=== PATIENT | female | born 1950 | race Caucasian/White ===

== ENCOUNTER 2025-02-01 15:58 | Inpatient (IN) ==
[2025-02-01] MEDS: LACTATED RINGERS 1,000 ML IV ONE ×2 (16:37→17:16)
[2025-02-01] MEDS: DIPH,PERTUSS(ACELL),TET VAC/PF 0.5 ML SYRINGE IM ONE (16:41)
[2025-02-01 17:16] LABS: Anion Gap 15.0 (8.0-16.0); Blood Urea Nitrogen 27 mg/dL (8-23); Calcium 9.3 mg/dL (8.6-10.4); Carbon Dioxide 21 mmol/L (22-30); Chloride 99 mmol/L (96-108); Glucose 115 mg/dL (70-105); Potassium 4.2 mmol/L (3.3-5.1); Sodium 135 mmol/L (133-145)
[2025-02-01 17:34] LABS: Basophils # (Auto) 0.05 K/mcL (0.00-0.30); Basophils % (Auto) 0.4 % (0.0-2.0); Eosinophils # (Auto) 0.06 K/mcL (0.00-0.70); Eosinophils % (Auto) 0.4 % (0.0-7.0); Hematocrit 34.7 % (34.1-44.9); Hemoglobin 11.0 g/dL (11.2-15.7); Lymphocytes # (Auto) 4.76 K/mcL (1.50-4.80); Lymphocytes % (Auto) 35.1 % (15.5-49.0); Mean Corpuscular HGB Conc 31.7 g/dL (31.0-36.0); Monocytes # (Auto) 0.99 K/mcL (0.10-0.90); Monocytes % (Auto) 7.3 % (1.0-12.0); Neutrophils % (Auto) 56.7 % (38.0-78.0); Platelet Count 156 K/mcL (140-440); RBC 3.39 M/mcL (3.59-5.38); WBC 13.6 K/mcL (4.5-11.0)
[2025-02-01 18:06] LABS: Bacteria,Urine Many /hpf (0); Bilirubin,Urine Negative (Negative); Color,Urine Yellow; Glucose,Urine (UA) Negative (Negative); Ketones,Urine Negative (Negative); Leukocyte Esterase,Urine Moderate /uL (Negative); Mucus,Urine Mod /hpf; PH,Urine 6.5 (5.0-9.0); Protein,Urine Negative (Negative); Specific Gravity,Urine 1.010 (1.000-1.035); Urobilinogen,Urine Normal
[2025-02-01 18:58] LABS: Barbiturate Screen,Urine None detected; Benzodiazepines Screen,Urine None detected; Fentanyl, Urine Screen None Detected; Opiate Screen,Urine None detected; Oxycodone, Urine Screen None detected; Phencyclidine Screen,Urine None detected
[2025-02-01] MEDS: ONDANSETRON 4 MG/2 ML VIAL ONE (19:19)
[2025-02-01] MEDS: NALOXONE HCL 0.4 MG/ML VIAL ONE ×2 (19:19→21:46)
[2025-02-01] MEDS: cefTRIAXone 1 GM VIAL IV ONE (19:19)
[2025-02-01] MEDS: IPRATROPIUM/ALBUTEROL 3 ML AMPUL.NEB NEB ONE (20:31)
[2025-02-01] MEDS: NALOXONE HCL 0.4 MG/ML VIAL IV PRN (21:30)
[2025-02-01] MEDS: CIPROFLOXACIN 400 MG/200 ML BAG IV ONE (21:55)
[2025-02-01] MEDS ORDERED: CIPROFLOXACIN 400 MG/200 ML BAG IV SCH (22:00)
[2025-02-01] MEDS ORDERED: SENNOSIDES 1 TABLET PO PRN (23:46)
[2025-02-01] MEDS ORDERED: POLYETHYLENE GLYCOL 3350 17 GM PACKET PO PRN (23:46)
[2025-02-01] MEDS ORDERED: DEXTROSE 50% 50 ML VIAL IV PRN (23:46)
[2025-02-01] MEDS ORDERED: DEXTROSE 31 GM ORAL.SUSP PO PRN (23:46)
[2025-02-02] MEDS: LACTATED RINGERS 1,000 ML IV SCH (00:18)
[2025-02-02] MEDS: 0.9 % SODIUM CHLORIDE 10 ML SYRINGE IV SCH (05:54)
[2025-02-02 06:23] LABS: Basophils # (Auto) 0.02 K/mcL (0.00-0.30); Basophils % (Auto) 0.2 % (0.0-2.0); Eosinophils # (Auto) 0 K/mcL (0.00-0.70); Eosinophils % (Auto) 0 % (0.0-7.0); Hematocrit 32.3 % (34.1-44.9); Hemoglobin 10.7 g/dL (11.2-15.7); Lymphocytes # (Auto) 2.87 K/mcL (1.50-4.80); Lymphocytes % (Auto) 32.5 % (15.5-49.0); Mean Corpuscular HGB Conc 33.1 g/dL (31.0-36.0); Monocytes # (Auto) 0.74 K/mcL (0.10-0.90); Monocytes % (Auto) 8.4 % (1.0-12.0); Neutrophils % (Auto) 58.8 % (38.0-78.0); Platelet Count 141 K/mcL (140-440); RBC 3.26 M/mcL (3.59-5.38); WBC 8.8 K/mcL (4.5-11.0)
[2025-02-02 06:54] LABS: ALT/SGPT 13 U/L (<40); AST/SGOT 24 U/L (<32); Albumin 3.2 gm/dL (3.2-5.2); Albumin/Globulin Ratio 1.5 (1.0-2.3); Alkaline Phosphatase 39 U/L (39-117); Anion Gap 12.0 (8.0-16.0); Bilirubin,Direct < 0.2 mg/dL (0-0.3); Bilirubin,Total 0.3 mg/dL (0.1-1.0); Blood Urea Nitrogen 20 mg/dL (8-23); Calcium 8.8 mg/dL (8.6-10.4); Carbon Dioxide 24 mmol/L (22-30); Chloride 102 mmol/L (96-108); Globulin 2.2 gm/dL (2.2-3.7); Glucose 73 mg/dL (70-105); Phosphorous 3.1 mg/dL (2.5-4.5); Potassium 3.7 mmol/L (3.3-5.1); Sodium 138 mmol/L (133-145); Triglycerides 96 mg/dL (<150); Uric Acid 8.2 mg/dL (2.5-8.0)
[2025-02-02] MEDS: INSULIN LISPRO 1 UNIT/0.01 ML UNIT SQ SCH (07:42)
[2025-02-02] MEDS: HEPARIN 5,000 UNIT/ML VIAL SQ SCH (09:16)
[2025-02-02] MEDS: CIPROFLOXACIN 400 MG/200 ML BAG IV SCH (09:17)
[2025-02-02] MEDS: ACETAMINOPHEN 325 MG TABLET PO PRN (09:17)
[2025-02-02] MEDS: ONDANSETRON 4 MG/2 ML VIAL IV PRN (11:50)
[2025-02-02] MEDS: METHADONE 5 MG TABLET PO PRN (11:50)
[2025-02-02] MEDS: OMEPRAZOLE 20 MG CAPSULE PO SCH (16:22)
[2025-02-02] MEDS: NICOTINE 21 MG PATCH TOPICAL SCH (16:22)
[2025-02-02] MEDS: BACLOFEN 10 MG TABLET PO SCH (21:17)
[2025-02-02] MEDS: ATORVASTATIN 20 MG TABLET PO SCH (21:17)
[2025-02-03 06:46] LABS: Basophils # (Auto) 0.03 K/mcL (0.00-0.30); Basophils % (Auto) 0.4 % (0.0-2.0); Eosinophils # (Auto) 0.05 K/mcL (0.00-0.70); Eosinophils % (Auto) 0.7 % (0.0-7.0); Hematocrit 34.1 % (34.1-44.9); Hemoglobin 11.0 g/dL (11.2-15.7); Lymphocytes # (Auto) 4.10 K/mcL (1.50-4.80); Lymphocytes % (Auto) 53.5 % (15.5-49.0); Mean Corpuscular HGB Conc 32.3 g/dL (31.0-36.0); Monocytes # (Auto) 0.64 K/mcL (0.10-0.90); Monocytes % (Auto) 8.3 % (1.0-12.0); Neutrophils % (Auto) 37.0 % (38.0-78.0); Platelet Count 130 K/mcL (140-440); RBC 3.36 M/mcL (3.59-5.38); WBC 7.7 K/mcL (4.5-11.0)
[2025-02-03] MEDS: LEVOTHYROXINE SODIUM 112 MCG TABLET PO SCH (07:04)
[2025-02-03] MEDS: LEVOTHYROXINE 25 MCG TABLET PO SCH (07:04)
[2025-02-03] MEDS: LIDOCAINE 4% TOP PATCH TOPICAL PRN (07:44)
[2025-02-03] MEDS: ASPIRIN 81 MG TAB.CHEW PO SCH (09:42)
[2025-02-03 12:51] LABS: ALT/SGPT 13 U/L (<40); AST/SGOT 22 U/L (<32); Albumin 3.2 gm/dL (3.2-5.2); Albumin/Globulin Ratio 1.4 (1.0-2.3); Alkaline Phosphatase 48 U/L (39-117); Anion Gap 9.0 (8.0-16.0); Bilirubin,Direct < 0.2 mg/dL (0-0.3); Bilirubin,Total < 0.2 mg/dL (0.1-1.0); Blood Urea Nitrogen 17 mg/dL (8-23); Calcium 8.7 mg/dL (8.6-10.4); Carbon Dioxide 27 mmol/L (22-30); Chloride 102 mmol/L (96-108); Globulin 2.3 gm/dL (2.2-3.7); Glucose 113 mg/dL (70-105); Phosphorous 3.2 mg/dL (2.5-4.5); Potassium 4.2 mmol/L (3.3-5.1); Sodium 138 mmol/L (133-145); Triglycerides 141 mg/dL (<150); Uric Acid 7.5 mg/dL (2.5-8.0)
[2025-02-03 14:31] VITALS: TEMP 97; O2SAT 95
[2025-02-03] MEDS ORDERED: CIPROFLOXACIN 500 MG TABLET PO SCH (21:00)
== END 2025-02-03 14:25 | disposition home health service (06) | DRG 918 ==
LOC: ED 15:58 → ICU 23:42
PROVIDERS: ADMIT Student in an Organized Health Care Education/Training Program; ATTEND Student in an Organized Health Care Education/Training Program